=== PATIENT | female | born 1985 | race Caucasian/White ===

== ENCOUNTER 2016-11-18 14:05 | Emergency (ER) | payer OTHER ==
--- NOTE | ~2016-11-18 | EKG ---
PATIENT: FLACA NICOLAS UNIT #: [id number] Ventricular Rate: 105 BPM Atrial Rate: 105 BPM P-R Interval: 140 ms QRS Duration: 88 ms Q-T Interval: 350 ms QTC Calculation(Bezet): 462 ms P [place]: 70 degrees Calculated R [place]: 82 degrees Calculated T [place]: 10 degrees Diagnosis Line: Sinus tachycardia Diagnosis Line: Nonspecific ST abnormality Inferior leads Diagnosis Line: Otherwise normal ECG Diagnosis Line: No previous ECGs available Diagnosis Line: Confirmed by LUPILLO VELASCO MD ([id number]) on 11/21/2016 Diagnosis Line: 10:18:14 AM INTERPRETING MD: KRISTA GRIER
--- NOTE | ~2016-11-18 | CR63 ---
[facility]. [facility] A Service of [facility] & [facility] RADIOLOGY TEXT RESULTS PATIENT: FLACA NICOLAS LOCATION: SED : 81 UNIT #: [id number] AGE: [address]: Mehreen Lieberman MD SEX: F ORDER DR: [id number] [address] [address] [id number] E MR#: [id number] Acc #: [id number] NAME: FLACA NICOLAS : 1985 SEX: F STUDY DATE/TIME: 11/18/2016 14:45 UNIT: SED ROOM: STUDY DESCRIPTION: CR Chest 2 View Attending Physician: Mehreen Lieberman M.D. Ordering Physician: Mehreen Lieberman M.D. Primary Care Physician: Lencho Alcazar M.D. MEDICAL IMAGING REPORT This report is preliminary unless electronic signature is present. EXAM Chest x-ray 11/18/2016 HISTORY 31-year-old female in the ED complaining of new onset chest pain beginning at 11:00 p.m. yesterday. TECHNIQUE PA and lateral upright chest series. FINDINGS The heart size and pulmonary vascularity are within normal limits. The lungs are expanded and clear. No visible pulmonary infiltrate, pneumothorax or pleural effusion. IMPRESSION Negative chest. Dictated by... Lencho Bee M.D. THIS IS AN ELECTRONICALLY VERIFIED REPORT Lencho Bee M.D. at 11/18/2016 8:51 PM REYNA/rand TD: 11/18/2016 18:02 JOB #: [id number] MEDICAL IMAGING REPORT Page 1 of 1
[~2016-11-18 14:05] MED LIST: ANIMAL SHAPES1 EAC2; CIPRO PO; DICLOFENAC PO; FLAGYL PO; FLECTOR1 EACH PO; FLEXERIL10 MG PO; FLOMAX0.4 M1 PO; HYDROCODON-ACE1 EAC9 PO; LORTAB 5/500 TA1 TA1 PO; MOBIC PO; MORGIDOX100 MG PO; NO MEDICATIONS; SUDAFED PO; ULTRAM PO; ZOFRAN PO; ZOFRANODT PO
[2016-11-18] MEDS ORDERED: NEURONTIN (14:16)
[2016-11-18] MEDS ORDERED: BENADRYL (14:17)
[2016-11-18] MEDS ORDERED: SAVELLA1 EACH (14:17)
[2016-11-18] MEDS ORDERED: ADDERALL (14:17)
== END 2016-11-18 17:08 | disposition home or self-care (01) ==
LOC: SED 14:05
DX: R07.89 Other chest pain (principal); F17.210 Nicotine dependence, cigarettes, uncomplicated; Z87.442 Personal history of urinary calculi; F41.9 Anxiety disorder, unspecified; F32.9 Major depressive disorder, single episode, unspecified; Z88.8 Allergy status to other drugs, medicaments and biological substances
CPT/HCPCS: 71020; 93005; 96372; 99284; J1885